=== PATIENT | female | born 1990 | race African-American/Black ===

== ENCOUNTER → 2016-10-28 | Outpatient (CLI) | payer MEDICAID | LOC: M OUTALCOH 07:38 | PROVIDERS: ATTEND Psychiatry & Neurology Psychiatry | DX: Z13.9 Encounter for screening, unspecified (principal); F11.20 Opioid dependence, uncomplicated; F12.20 Cannabis dependence, uncomplicated; F15.20 Other stimulant dependence, uncomplicated ==

== ENCOUNTER 2016-11-07 21:02 | Emergency (ER) | payer MEDICAID ==
[~2016-11-07] VITALS: Ht 172.7 cm; Wt 88.5 kg
[2016-11-07 21:04] VITALS: BP 139/78
[2016-11-07] MEDS ORDERED: CEFTAROLINE FOSAMIL 600 MG in D5W MINI-BAG PLUS 50 ML IV ONE (22:45)
[2016-11-07] MEDS ORDERED: ACETAMINOPHEN TAB 650MG DOSE (2X325MG) PO ONE (22:45)
--- NOTE | 2016-11-07 23:40 | REPUSA ---
Clinical history: right leg mass. Findings: Real-time ultrasound imaging of the right leg was performed. There is a complex fluid rafa ection at the site of concern, measuring 2.4 x 1.2 x 1.4 cm. Normal heterogeneous fibroglandular tiss ue is otherwise noted. No focal defined mass is appreciated. No evidence of calcifications are apprec iated. No other gross abnormalities. Impression: Focal loculated fluid collection at the site of concern, suspicious for an abscess.
[2016-11-08 00:10] LABS: BASO # 0.1 K/mm3 (0.0-0.2); BASO % 0.5 % (0.0-1.0); EOS # 0.3 K/mm3 (0.0-0.50); EOS % 2.5 % (0.0-3.0); LARGE UNSTAINED CELL # 0.3 K/mm3 (0.0-0.4); LARGE UNSTAINED CELL % 2.9 % (0.0-4.0); LYMPH # 2.2 K/mm3 (1.5-6.5); LYMPH % 17.2 % (24.0-44.0); MEAN CORPUSCULAR HGB CONC 33.5 g/dl (32.0-36.5); MEAN CORPUSCULAR VOLUME 86.6 fl (80.0-96.0); MONO # 1.2 K/mm3 (0.0-0.8); MONO % 10.7 % (0.0-5.0); NEUTROPHILS # 7.2 K/mm3 (1.8-7.7); NEUTROPHILS % 66.2 % (36.0-66.0); PLATELET COUNT, AUTOMATED 227 k/mm3 (150-450); RED CELL DISTRIBUTION WIDTH 12.5 % (11.5-14.5); WHITE BLOOD COUNT 10.9 K/mm3 (4.0-10.0)
[2016-11-08 00:32] LABS: ANION GAP 8 MEQ/L (8-16); BLOOD UREA NITROGEN 14 MG/DL (7-18); CALCIUM LEVEL 8.7 MG/DL (8.5-10.1); CARBON DIOXIDE LEVEL 27 MEQ/L (21-32); CHLORIDE LEVEL 102 MEQ/L (98-107); CREATININE FOR GFR 0.95 MG/DL (0.55-1.02); GLOMERULAR FILTRATION RATE > 60.0 (>60); GLUCOSE, FASTING 132 MG/DL (70-105); POTASSIUM SERUM 3.7 MEQ/L (3.5-5.1); SODIUM LEVEL 137 MEQ/L (136-145)
[2016-11-08] MEDS ORDERED: AUGM500T34 PO (01:47)
== END 2016-11-08 02:00 | disposition left against medical advice (07) ==
LOC: M ED 21:50
DX: L02.415 Cutaneous abscess of right lower limb (principal); R50.9 Fever, unspecified; F17.210 Nicotine dependence, cigarettes, uncomplicated

== ENCOUNTER 2016-11-12 15:02 | Emergency (ER) | payer MEDICAID, OTHER ==
[~2016-11-12] VITALS: Ht 172.7 cm; Wt 88.5 kg
[~2016-11-12 15:02] MED LIST: AUGM500T34 PO
[2016-11-12] MEDS ORDERED: PROZ20CA11 PO (15:10)
--- NOTE | 2016-11-12 18:30 | REPUSA ---
Clinical history: Right calf mass. Findings: Real-time ultrasound imaging of the right calf region was performed. There is a large compl ex fluid collection at the site of concern measuring 3.1 x 1.0 x 2.1 cm. This is not well loculated. Surrounding soft tissue edema is noted, with superficial soft tissue erythema. No other soft tissue m asses are seen. Impression: Large complex fluid collection at the site of concern. This could represent focal edema, although a developing abscess cannot be excluded. Follow-up is suggested as clinically indicated.
[2016-11-12 18:57] VITALS: BP 140/68
== END 2016-11-12 18:58 | disposition home or self-care (01) ==
LOC: M ED 15:48
DX: L02.415 Cutaneous abscess of right lower limb (principal); J45.909 Unspecified asthma, uncomplicated; F41.9 Anxiety disorder, unspecified; F32.9 Major depressive disorder, single episode, unspecified; F17.200 Nicotine dependence, unspecified, uncomplicated; Z79.2 Long term (current) use of antibiotics; Z79.899 Other long term (current) drug therapy

== ENCOUNTER → 2017-03-21 | Outpatient (REF) | payer OTHER ==
[~2017-03-21] MED LIST changes: +PROZ20CA11 PO
[2017-03-26 16:02] LABS: MISCELLANEOUS TEST LAB See Separate Report
[2017-03-29 00:07] LABS: BENZODIAZEPINES, URINE SCREEN Negative ng/mL (Cutoff=200); METHADONE, URINE SCREEN Negative ng/mL (Cutoff=300); pH, URINE 7.3 (4.5-8.9)
== END ==
LOC: M LAB REF 11:05
PROVIDERS: ATTEND Family Medicine Addiction Medicine
DX: F11.21 Opioid dependence, in remission (principal)

== ENCOUNTER → 2017-03-27 | Outpatient (REF) | payer OTHER ==
[2017-04-22 07:42] LABS: BENZODIAZEPINES, URINE SCREEN Negative ng/mL (Cutoff=200); METHADONE, URINE SCREEN Negative ng/mL (Cutoff=300); NALOXONE RESULT Positive (.); URINE NORBUPRENORPHINE Positive (.); URINE NORBUPRENORPHINE CONFIRM 496 ng/mL (Cutoff=10); pH, URINE 5.4 (4.5-8.9)
== END ==
LOC: M LAB REF 12:25
PROVIDERS: ATTEND Family Medicine Addiction Medicine
DX: F11.21 Opioid dependence, in remission (principal)

== ENCOUNTER → 2017-04-03 | Outpatient (REF) | payer OTHER ==
[2017-04-03 18:57] LABS: BASO % 0.5 % (0.0-1.0); EOS # 0.3 10^3/uL (0.0-0.50); IMMATURE GRANULOCYTE % 0.3 % (0-0); LYMPH # 2.2 10^3/uL (1.5-6.5); LYMPH % 35.1 % (24.0-44.0); MEAN CORPUSCULAR HEMOGLOBIN 27.2 pg (27.0-33.0); MEAN CORPUSCULAR HGB CONC 32.3 g/dl (32.0-36.5); MEAN CORPUSCULAR VOLUME 84.2 fl (80.0-96.0); MONO # 0.4 10^3/uL (0.0-0.8); NEUTROPHILS # 3.3 10^3/uL (1.8-7.7); NEUTROPHILS % 52.1 % (36.0-66.0); PLATELET COUNT, AUTOMATED 251 10^3/uL (150-450); RED CELL DISTRIBUTION WIDTH 14.2 % (11.5-14.5); WHITE BLOOD COUNT 6.3 10^3/uL (4.0-10.0)
[2017-04-03 19:05] LABS: ALBUMIN 3.6 GM/DL (3.2-5.2); ALBUMIN/GLOBULIN RATIO 0.95 (1.00-1.93); ALKALINE PHOSPHATASE 70 U/L (45-117); ALT/SGPT 24 U/L (12-78); ANION GAP 6 MEQ/L (8-16); AST/SGOT 22 U/L (15-37); BILIRUBIN,TOTAL 0.3 MG/DL (0.2-1.0); BLOOD UREA NITROGEN 12 MG/DL (7-18); CALCIUM LEVEL 8.9 MG/DL (8.5-10.1); CARBON DIOXIDE LEVEL 27 MEQ/L (21-32); CHLORIDE LEVEL 106 MEQ/L (98-107); CREATININE FOR GFR 0.66 MG/DL (0.55-1.02); GLOMERULAR FILTRATION RATE > 60.0 (>60); GLUCOSE, FASTING 85 MG/DL (70-105); POTASSIUM SERUM 4.5 MEQ/L (3.5-5.1); SODIUM LEVEL 139 MEQ/L (136-145); TOTAL PROTEIN 7.4 GM/DL (6.4-8.2)
[2017-04-14 14:21] LABS: BENZODIAZEPINES, URINE SCREEN Negative ng/mL (Cutoff=200); METHADONE, URINE SCREEN Negative ng/mL (Cutoff=300); NALOXONE RESULT Negative (.); URINE NORBUPRENORPHINE Positive (.); URINE NORBUPRENORPHINE CONFIRM 184 ng/mL (Cutoff=10); pH, URINE 5.6 (4.5-8.9)
== END ==
LOC: M LAB REF 12:10
PROVIDERS: ATTEND Family Medicine Addiction Medicine
DX: F11.21 Opioid dependence, in remission (principal)

== ENCOUNTER → 2017-04-10 | Outpatient (REF) | payer OTHER ==
[2017-04-21 10:12] LABS: BENZODIAZEPINES, URINE SCREEN Negative ng/mL (Cutoff=200); METHADONE, URINE SCREEN Negative ng/mL (Cutoff=300); NALOXONE RESULT Negative (.); URINE NORBUPRENORPHINE Positive (.); URINE NORBUPRENORPHINE CONFIRM 134 ng/mL (Cutoff=10); pH, URINE 5.6 (4.5-8.9)
== END ==
LOC: M LAB REF 15:15
PROVIDERS: ATTEND Family Medicine Addiction Medicine
DX: R61 Generalized hyperhidrosis (principal)

== ENCOUNTER → 2017-05-09 | Outpatient (REF) | payer OTHER | LOC: M LAB REF 12:36 | PROVIDERS: ATTEND Family Medicine Addiction Medicine | DX: F11.21 Opioid dependence, in remission (principal) ==

== ENCOUNTER → 2017-05-23 | Outpatient (REF) | payer OTHER ==
[2017-06-01 10:53] LABS: BENZODIAZEPINES, URINE SCREEN Negative ng/mL (Cutoff=200); METHADONE, URINE SCREEN Negative ng/mL (Cutoff=300); NALOXONE RESULT Negative (.); URINE NORBUPRENORPHINE Positive (.); URINE NORBUPRENORPHINE CONFIRM 320 ng/mL (Cutoff=10); pH, URINE 5.3 (4.5-8.9)
== END ==
LOC: M LAB REF 16:20
PROVIDERS: ATTEND Family Medicine Addiction Medicine
DX: F11.21 Opioid dependence, in remission (principal)

== ENCOUNTER → 2017-06-13 | Outpatient (REF) | payer OTHER, MEDICAID | LOC: M LAB REF 16:44 | PROVIDERS: ATTEND Family Medicine Addiction Medicine | DX: F11.21 Opioid dependence, in remission (principal) ==

== ENCOUNTER → 2017-07-04 | Outpatient (REF) | payer OTHER, MEDICAID | LOC: M LAB REF 16:23 | DX: F11.21 Opioid dependence, in remission (principal) ==

== ENCOUNTER → 2017-07-25 | Outpatient (REF) | payer OTHER, MEDICAID | LOC: M LAB REF 19:10 | DX: F11.21 Opioid dependence, in remission (principal) | CPT/HCPCS: 80362 ==

== ENCOUNTER → 2017-08-12 | Outpatient (REF) | payer OTHER, MEDICAID | LOC: M LAB REF 16:56 | DX: F11.21 Opioid dependence, in remission (principal) ==

== ENCOUNTER → 2017-08-13 | Outpatient (REF) | payer OTHER, MEDICAID | LOC: M LAB REF 22:17 | DX: F11.21 Opioid dependence, in remission (principal) ==

== ENCOUNTER → 2017-08-15 | Outpatient (REF) | payer OTHER, MEDICAID ==
[2017-08-15 15:49] LABS: CHLAMYDIA DNA AMPLIFICATION NEGATIVE (NEGATIVE); GC DNA AMPLIFICATION NEGATIVE (NEGATIVE)
== END ==
LOC: M LAB REF 12:55
DX: Z11.3 Encounter for screening for infections with a predominantly sexual mode of transmission (principal)

== ENCOUNTER → 2017-08-27 | Outpatient (CLI) | payer OTHER ==
[2017-08-27 15:39] LABS: PROGESTERONE 9.5 NG/ML
[2017-08-27 15:39] LABS: ESTRADIOL 114.3 PG/ML
== END ==
LOC: M LAB 14:44
DX: Z31.61 Procreative counseling and advice using natural family planning (principal)
CPT/HCPCS: 84144

== ENCOUNTER → 2017-09-03 | Outpatient (REF) | payer OTHER ==
[2017-09-10 08:40] LABS: AMPHETAMINE SCREEN, URINE Negative ng/mL (Cutoff=1000); BARBITURATES SCREEN, URINE Negative ng/mL (Cutoff=200); BENZODIAZEPINES, URINE SCREEN Negative ng/mL (Cutoff=200); CANNABINOID SCREEN, URINE Negative ng/mL (Cutoff=20); COCAINE SCREEN, URINE Negative ng/mL (Cutoff=300); CREATININE, URINE 169.7 mg/dL (20.0-300.0); FENTANYL URINE SCREEN Negative pg/mL (Cutoff=2000); METHADONE, URINE SCREEN Negative ng/mL (Cutoff=300); NALOXONE RESULT Positive (.); OPIATE SCREEN, URINE Negative ng/mL (Cutoff=300); OXYCODONE, SCREEN, URINE Negative ng/mL (Cutoff=100); PCP SCREEN, URINE Negative ng/mL (Cutoff=25); SPECIFIC GRAVITY, URINE 1.031 (.); URINE BUPRENORPHINE Positive (.); URINE BUPRENORPHINE Positive (Cutoff=10); URINE BUPRENORPHINE See Final Results ng/mL (Cutoff=10); URINE BUPRENORPHINE CONFIRM 338 ng/mL (Cutoff=10); URINE NORBUPRENORPHINE Positive (.); URINE NORBUPRENORPHINE CONFIRM 344 ng/mL (Cutoff=10); pH, URINE 5.1 (4.5-8.9)
== END ==
LOC: M LAB REF 16:30
DX: F11.21 Opioid dependence, in remission (principal)
CPT/HCPCS: 80362

== ENCOUNTER → 2017-09-12 | Outpatient (REF) | payer OTHER, MEDICAID | LOC: M LAB REF 19:35 | DX: F11.21 Opioid dependence, in remission (principal) ==

== ENCOUNTER → 2017-10-22 | Outpatient (REF) | payer OTHER, MEDICAID | LOC: M LAB REF 09:19 | DX: F11.21 Opioid dependence, in remission (principal) ==

== ENCOUNTER → 2017-11-12 | Outpatient (REF) | payer OTHER, MEDICAID ==
[2017-11-21 03:02] LABS: AMPHETAMINE SCREEN, URINE Negative ng/mL (Cutoff=1000); BARBITURATES SCREEN, URINE Negative ng/mL (Cutoff=200); BENZODIAZEPINES, URINE SCREEN Negative ng/mL (Cutoff=200); CANNABINOID SCREEN, URINE Negative ng/mL (Cutoff=20); COCAINE SCREEN, URINE Negative ng/mL (Cutoff=300); CREATININE, URINE 66.8 mg/dL (20.0-300.0); FENTANYL URINE SCREEN Negative pg/mL (Cutoff=2000); METHADONE, URINE SCREEN Negative ng/mL (Cutoff=300); NALOXONE RESULT Negative (.); OPIATE SCREEN, URINE Negative ng/mL (Cutoff=300); OXYCODONE, SCREEN, URINE Negative ng/mL (Cutoff=100); PCP SCREEN, URINE Negative ng/mL (Cutoff=25); SPECIFIC GRAVITY, URINE 1.014 (.); URINE BUPRENORPHINE Negative (Cutoff=10); URINE BUPRENORPHINE Positive (Cutoff=10); URINE BUPRENORPHINE See Final Results ng/mL (Cutoff=10); URINE NORBUPRENORPHINE Positive (.); URINE NORBUPRENORPHINE CONFIRM 18 ng/mL (Cutoff=10); pH, URINE 7.3 (4.5-8.9)
== END ==
LOC: M LAB REF 16:47
DX: F11.21 Opioid dependence, in remission (principal)

== ENCOUNTER → 2018-01-16 | Outpatient (CLI) | payer MEDICAID, OTHER ==
[2018-01-16 14:08] LABS: BASO % 0.2 % (0.0-1.0); EOS # 0.2 10^3/uL (0.0-0.50); EOS % 1.2 % (0.0-3.0); HEMATOCRIT 34.6 % (36.0-47.0); HEMOGLOBIN 11.8 g/dl (12.0-15.5); IMMATURE GRANULOCYTE % 0.7 % (0-3.0); LYMPH # 2.6 10^3/uL (1.5-6.5); LYMPH % 21.7 % (24.0-44.0); MEAN CORPUSCULAR HEMOGLOBIN 28.2 pg (27.0-33.0); MEAN CORPUSCULAR HGB CONC 34.1 g/dl (32.0-36.5); MEAN CORPUSCULAR VOLUME 82.6 fl (80.0-96.0); MONO # 0.5 10^3/uL (0.0-0.8); MONO % 3.9 % (0.0-5.0); NEUTROPHILS # 8.8 10^3/uL (1.8-7.7); NEUTROPHILS % 72.3 % (36.0-66.0); PLATELET COUNT, AUTOMATED 314 10^3/uL (150-450); RED BLOOD COUNT 4.19 10^6/uL (4.00-5.40); RED CELL DISTRIBUTION WIDTH 13.2 % (11.5-14.5); WHITE BLOOD COUNT 12.2 10^3/uL (4.0-10.0)
[2018-01-16 14:29] LABS: ESTIMATED AVERAGE GLUCOSE 108 MG/DL (60-110); HEMOGLOBIN A1c 5.4 %
[2018-01-16 14:33] LABS: ALT/SGPT 29 U/L (12-78); AST/SGOT 13 U/L (7-37); BILIRUBIN,TOTAL 0.2 MG/DL (0.2-1.0); CREATININE FOR GFR 0.48 MG/DL (0.55-1.30); GLOMERULAR FILTRATION RATE > 60.0 (>60); GLUCOSE CHALLENGE TEST 1 HOUR 146 MG/DL (LESS THAN 140); LDH LACTATE DEHYDROGENASE 163 U/L (84-246); URIC ACID 3.7 MG/DL (2.6-6.0)
[2018-01-16 14:40] LABS: TOTAL PROTEIN,RANDOM URINE 28.7 MG/DL (0.0-12.0)
[2018-01-16 14:49] LABS: RUBELLA IgG QUALITATIVE IMMUNE (IMMUNE)
[2018-01-16 14:50] LABS: HBsAg Prenatal NEGATIVE (NEGATIVE)
[2018-01-16 15:18] LABS: HIV 1&2 SCREEN CENTAUR NEGATIVE (NEGATIVE)
[2018-01-16 15:23] LABS: HEPATITIS C VIRUS ABY INDEX > 11.0 INDEX (<0.8)
[2018-01-16 15:50] LABS: CHLAMYDIA DNA AMPLIFICATION NEGATIVE (NEGATIVE); GC DNA AMPLIFICATION NEGATIVE (NEGATIVE)
[2018-01-22 00:06] LABS: HCV RNA NAA QUALITATIVE Negative (Negative)
== END ==
LOC: M LAB 12:19
DX: O10.011 Pre-existing essential hypertension complicating pregnancy, first trimester (principal); Z3A.09 9 weeks gestation of pregnancy
CPT/HCPCS: 84460

== ENCOUNTER → 2018-01-30 | Outpatient (CLI) | payer MEDICAID, OTHER ==
[2018-01-30 09:13] LABS: GLUCOSE, FASTING 99 MG/DL (LESS THAN 95)
[2018-01-30 10:22] LABS: 1 HR GLUCOSE 120 MG/DL (LESS THAN 180)
[2018-01-30 11:07] LABS: 2 HR GLUCOSE 105 MG/DL (LESS THAN 155)
[2018-01-30 12:31] LABS: 3 HR GLUCOSE 87 MG/DL (LESS THAN 140)
== END ==
LOC: M LAB 08:15
DX: O10.011 Pre-existing essential hypertension complicating pregnancy, first trimester (principal)
CPT/HCPCS: 82951

== ENCOUNTER → 2018-03-09 | Outpatient (CLI) | payer OTHER, MEDICAID | LOC: M RAD 11:30 | DX: O10.011 Pre-existing essential hypertension complicating pregnancy, first trimester (principal); O99.211 Obesity complicating pregnancy, first trimester; E66.9 Obesity, unspecified; Z3A.18 18 weeks gestation of pregnancy | CPT/HCPCS: 76811 ==

== ENCOUNTER → 2018-04-03 | Outpatient (CLI) | payer OTHER | LOC: M RAD 12:05 | DX: Z34.90 Encounter for supervision of normal pregnancy, unspecified, unspecified trimester (principal); O10.012 Pre-existing essential hypertension complicating pregnancy, second trimester; Z3A.22 22 weeks gestation of pregnancy | CPT/HCPCS: 76816 ==

== ENCOUNTER 2018-04-25 17:41 | Emergency (ER) | payer OTHER ==
[2018-04-25] MEDS: LIDOCAINE VISCOUS 2% SOLN 15ML UDC SSP (18:10)
== END 2018-04-25 18:13 | disposition home or self-care (01) ==
LOC: M ED 17:41
DX: K04.7 Periapical abscess without sinus (principal); K02.9 Dental caries, unspecified; J45.909 Unspecified asthma, uncomplicated; F41.9 Anxiety disorder, unspecified; F33.9 Major depressive disorder, recurrent, unspecified; R56.9 Unspecified convulsions; Z79.899 Other long term (current) drug therapy
CPT/HCPCS: 99282

== ENCOUNTER → 2018-05-18 | Outpatient (CLI) | payer OTHER ==
[2018-05-18 13:19] LABS: HEMATOCRIT 30.9 % (36.0-47.0); HEMOGLOBIN 10.3 g/dl (12.0-15.5); MEAN CORPUSCULAR HEMOGLOBIN 27.5 pg (27.0-33.0); MEAN CORPUSCULAR HGB CONC 33.3 g/dl (32.0-36.5); MEAN CORPUSCULAR VOLUME 82.6 fl (80.0-96.0); PLATELET COUNT, AUTOMATED 335 10^3/uL (150-450); RED BLOOD COUNT 3.74 10^6/uL (4.00-5.40); RED CELL DISTRIBUTION WIDTH 12.9 % (11.5-14.5); WHITE BLOOD COUNT 13.6 10^3/uL (4.0-10.0)
[2018-05-18 13:39] LABS: GLUCOSE CHALLENGE TEST 1 HOUR 128 MG/DL (LESS THAN 140)
== END ==
LOC: M LAB 11:09
DX: O10.012 Pre-existing essential hypertension complicating pregnancy, second trimester (principal); Z3A.00 Weeks of gestation of pregnancy not specified
CPT/HCPCS: 82950

== ENCOUNTER → 2018-05-18 | Outpatient (CLI) | payer OTHER ==
[2018-05-18 13:24] LABS: BASO # 0.1 10^3/uL (0.0-0.2); BASO % 0.4 % (0.0-1.0); EOS # 0.2 10^3/uL (0.0-0.50); EOS % 1.6 % (0.0-3.0); HEMATOCRIT 31.1 % (36.0-47.0); HEMOGLOBIN 10.3 g/dl (12.0-15.5); IMMATURE GRANULOCYTE % 2.2 % (0-3.0); LYMPH # 2.2 10^3/uL (1.5-6.5); LYMPH % 16.4 % (24.0-44.0); MEAN CORPUSCULAR HEMOGLOBIN 27.6 pg (27.0-33.0); MEAN CORPUSCULAR HGB CONC 33.1 g/dl (32.0-36.5); MEAN CORPUSCULAR VOLUME 83.4 fl (80.0-96.0); MONO # 0.5 10^3/uL (0.0-0.8); MONO % 3.9 % (0.0-5.0); NEUTROPHILS # 10.2 10^3/uL (1.8-7.7); NEUTROPHILS % 75.5 % (36.0-66.0); PLATELET COUNT, AUTOMATED 337 10^3/uL (150-450); RED BLOOD COUNT 3.73 10^6/uL (4.00-5.40); RED CELL DISTRIBUTION WIDTH 12.8 % (11.5-14.5); WHITE BLOOD COUNT 13.5 10^3/uL (4.0-10.0)
[2018-05-18 13:48] LABS: ALBUMIN 3.2 GM/DL (3.2-5.2); ALBUMIN/GLOBULIN RATIO 0.78 (1.00-1.93); ALKALINE PHOSPHATASE 112 U/L (45-117); ALT/SGPT 17 U/L (12-78); AST/SGOT 16 U/L (7-37); BILIRUBIN,DIRECT < 0.1 MG/DL (0.0-0.2); BILIRUBIN,TOTAL 0.3 MG/DL (0.2-1.0); TOTAL PROTEIN 7.3 GM/DL (6.4-8.2)
[2018-05-18 13:53] LABS: HEPATITIS B SURFACE ANTIBODY POSITIVE (POSITIVE)
[2018-05-20 14:13] LABS: HEPATITIS A IgG TOTAL Negative (Negative); HEPATITIS B CORE ANTIBODY IGG Negative (Negative); HEPATITIS C QUANTITATION HCV Not Detected IU/mL (.)
== END ==
LOC: M LAB 11:14
DX: Z09 Encounter for follow-up examination after completed treatment for conditions other than malignant neoplasm (principal); Z86.19 Personal history of other infectious and parasitic diseases
CPT/HCPCS: 80076

== ENCOUNTER → 2018-05-27 | Outpatient (CLI) | payer OTHER | LOC: M RAD 15:37 | DX: O10.012 Pre-existing essential hypertension complicating pregnancy, second trimester (principal); Z3A.31 31 weeks gestation of pregnancy | CPT/HCPCS: 76816 ==

== ENCOUNTER 2018-06-10 11:39 | Emergency (ER) | payer OTHER ==
[2018-06-10] MEDS: ACETAMINOPHEN 325 MG TAB PO (12:14)
[2018-06-10] MEDS: ALBUTEROL SULFATE 2.5 MG/0.5 ML INH NEB SOLN INH (12:18)
[2018-06-10 12:24] LABS: KETONE, URINE AUTO RFX NEGATIVE (NEGATIVE); LEUKOCYTE ESTERASE UR AUTO RFX NEGATIVE (NEGATIVE); MUCUS, URINE RFX SMALL (NEGATIVE); NITRITE, URINE AUTO RFX NEGATIVE (NEGATIVE); RBC, URINE AUTO RFX 1 /HPF (0-3); SPECIFIC GRAVITY UR AUTO RFX 1.026 (1.002-1.035); SQUAM EPITHELIAL CELL UR AURFX 3 /HPF (0-6); WBC, URINE AUTO RFX 1 /HPF (0-3)
== END 2018-06-10 13:17 | disposition admitted as inpatient to this hospital (09) ==
LOC: M ED 11:39
DX: O99.513 Diseases of the respiratory system complicating pregnancy, third trimester (principal); J40 Bronchitis, not specified as acute or chronic; O9A.213 Injury, poisoning and certain other consequences of external causes complicating pregnancy, third trimester; S39.012A Strain of muscle, fascia and tendon of lower back, initial encounter; Y92.098 Other place in other non-institutional residence as the place of occurrence of the external cause; O12.13 Gestational proteinuria, third trimester; O99.43 Diseases of the circulatory system complicating the puerperium; R03.0 Elevated blood-pressure reading, without diagnosis of hypertension; Z87.891 Personal history of nicotine dependence; Z79.899 Other long term (current) drug therapy; Z3A.31 31 weeks gestation of pregnancy
CPT/HCPCS: 94640

== ENCOUNTER 2018-06-10 13:40 | Outpatient (CLI) | payer OTHER ==
[~2018-06-10] VITALS: Ht 175.3 cm; Wt 123.2 kg
[~2018-06-10 13:40] MED LIST changes: +AUGM875T28 PO; +LABE10TAB; +LIDO1SOL7 SSP; +VENTAER
[2018-06-10] MEDS ORDERED: PRENTAB9 PO (13:58)
[2018-06-10 14:00] VITALS: BP 144/80
[2018-06-10 14:40] VITALS: BP 122/57
[2018-06-10 15:16] LABS: HEMATOCRIT 31.9 % (36.0-47.0); HEMOGLOBIN 10.4 g/dl (12.0-15.5); MEAN CORPUSCULAR HGB CONC 32.6 g/dl (32.0-36.5); MEAN CORPUSCULAR VOLUME 82.9 fl (80.0-96.0); PLATELET COUNT, AUTOMATED 343 10^3/uL (150-450); RED BLOOD COUNT 3.85 10^6/uL (4.00-5.40); WHITE BLOOD COUNT 14.1 10^3/uL (4.0-10.0)
[2018-06-10 15:34] LABS: ALT/SGPT 16 U/L (12-78); BILIRUBIN,TOTAL 0.1 MG/DL (0.2-1.0); CREATININE FOR GFR 0.79 MG/DL (0.55-1.30); GLOMERULAR FILTRATION RATE > 60.0 (>60); LDH LACTATE DEHYDROGENASE 210 U/L (84-246); URIC ACID 3.4 MG/DL (2.6-6.0)
[2018-06-10 15:47] LABS: TOTAL PROTEIN,RANDOM URINE 20.4 MG/DL (0.0-12.0)
[2018-06-10 16:14] VITALS: BP 132/78
--- NOTE | 2018-06-10 16:32 | REP ---
Obstetric sonography: Limited study. History: Hypertension. Findings: Scanning through the gravid uterus demonstrates a viable single intrauterine gestation in a cephalic lie. An anterior placenta is seen grade 1 without evidence of previa. motion is observed and heart rate is recorded at 153 beats per minute. Closed cervical length viewed transabdominally is 4.4 cm. Amniotic fluid is subjectively normal. CHARO is normal 16.8 cm. Biophysical profile score is eight out of a possible eight. SD ratio in the umbilical cord artery by Doppler slightly low at 2.48. Electronically Signed by Alfredo Spears MD 06/10/2018 04:24 P
--- NOTE | 2018-06-10 16:33 | IPNPDOC ---
Text Note Date of Service The patient was seen on 06/10/18. NOTE 28 yo EDD2/. Presents from ED @ 31w3d with complaints of backpain and coughing. Being tx for bronchitis. Hx significant for CHTN, currently on labetalol 100mg BID NAD Abdomen soft, gravid, no UC FH difficult to trace due to activity, 140's BP max 144/80. CBC 14.1>10.4/31.9<343 Urine ratio 0.06 Preeclampsia panel WNL BPP 8/8, CHARO 16.8. Discharged home. Warnings reviewed. Keep next appt NV VS,Fishbone, I+O VS, Fishbone, I+O Laboratory Tests 06/10/18 15:00 Red Blood Count 3.85 L, Mean Corpuscular Volume 82.9, Mean Corpuscular Hemoglobin 27.0, Mean Corpuscular Hemoglobin Concent 32.6, Red Cell Distribution Width 12.9, Aspartate Amino Transf (AST/SGOT) 16, Alanine Aminotransferase (ALT/SGPT) 16, Lactate Dehydrogenase 210, Total Bilirubin 0.1 L, Uric Acid 3.4 Vital Signs Date Time Temp Pulse Resp B/P (MAP) Pulse Ox O2 Delivery O2 Flow Rate FiO2 06/10/18 16:14 92 132/78 (96) 06/10/18 14:40 98.6 18 Sarah Fish CNM Jun 10, 2018 16:33
== END 2018-06-10 16:35 | disposition home or self-care (01) ==
LOC: M LDO 13:40
PROVIDERS: ATTEND Advanced Practice Midwife
DX: O99.89 Other specified diseases and conditions complicating pregnancy, childbirth and the puerperium (principal); M54.9 Dorsalgia, unspecified; O99.513 Diseases of the respiratory system complicating pregnancy, third trimester; J40 Bronchitis, not specified as acute or chronic; O16.3 Unspecified maternal hypertension, third trimester; Z3A.31 31 weeks gestation of pregnancy; Z79.899 Other long term (current) drug therapy

== ENCOUNTER → 2018-07-01 | Outpatient (CLI) | payer OTHER ==
[~2018-07-01] MED LIST changes: +PRENTAB9 PO
--- NOTE | 2018-07-02 04:26 | REP ---
Clinical: Maternal hypertension for well being Comparison: 06/24/2018 . Findings: Examination demonstrates a single live intrauterine in cephalic presentation. motion is identified by technologist. Placenta is noted anterior and grade II without evidence for placenta previa or abruption. Amniotic fluid volume is normal. Cervix measures 3.5 cm in length and appears closed. No evidence for nuchal cord. Gestational age by LMP 34 weeks 2 days with REESE 08/10/2018 . Gestational age by current first ultrasound 35 weeks 1 day with REESE 08/04/2018 . FHR equals 130 beats per minute. Biophysical profile score equals 8/8. Amniotic fluid index: 17.3 cm (8.0 - 24.8) Umbilical cord SD ratio: 2.63 (2.00 - 3.00). Anatomical survey was not performed although small scrotal hydroceles are suggested which may reflect inguinal hernia and warrant follow-up examination. Impression: Single live advanced gestation in cephalic presentation. Biophysical profile score equals 8/8. Incidental small scrotal hydroceles warrant evaluation for hernia. Electronically Signed by Gasper Hussein MD 07/02/2018 04:17 A
== END ==
LOC: M RAD 13:15
PROVIDERS: ATTEND Obstetrics & Gynecology
DX: O10.013 Pre-existing essential hypertension complicating pregnancy, third trimester (principal); Z3A.35 35 weeks gestation of pregnancy

== ENCOUNTER → 2018-07-09 | Outpatient (CLI) | payer OTHER ==
--- NOTE | 2018-07-10 03:31 | REP ---
Clinical: U well-being. Maternal hypertension. Comparison: 07/01/2018 . Findings: Examination demonstrates a single live intrauterine in cephalic presentation. motion is identified by technologist. Placenta is noted anterior and grade grade II without evidence for placenta previa or abruption. Amniotic fluid volume is normal. Cervix measures 3.8 cm in length and appears closed. No evidence for nuchal cord. Gestational age by LMP 35 weeks 3 days with REESE 08/10/2018 . FHR equals 145 beats per minute. Biophysical profile score: 8/8. Amniotic fluid index: 6.8 cm (7.8 - 24.9) Umbilical cord SD ratio: 2.34 (2.00 - 3.00) Impression: Single live intrauterine in cephalic presentation. Biophysical profile score equals 8/8. Amniotic fluid volume is minimally below normal range. Electronically Signed by Gasper Hussein MD 07/10/2018 03:23 A
== END ==
LOC: M RAD 11:51
PROVIDERS: ATTEND Advanced Practice Midwife
DX: O10.013 Pre-existing essential hypertension complicating pregnancy, third trimester (principal); Z3A.35 35 weeks gestation of pregnancy

== ENCOUNTER → 2018-07-14 | Outpatient (REF) | payer OTHER | LOC: M LAB REF 12:59 | PROVIDERS: ATTEND Advanced Practice Midwife | DX: O10.013 Pre-existing essential hypertension complicating pregnancy, third trimester (principal) ==

== ENCOUNTER → 2018-07-16 | Outpatient (CLI) | payer OTHER ==
--- NOTE | 2018-07-16 20:53 | REP ---
Clinical: well-being Comparison: 07/09/2018 . Findings: Examination demonstrates a single live intrauterine in cephalic presentation. motion is identified by technologist. Placenta is noted anterior and grade grade III without evidence for placenta previa or abruption. Amniotic fluid volume is normal. Nuchal cord cannot be excluded. Gestational age by LMP 36 weeks 3 days with REESE 08/10/2018 . Gestational age by current measurements the 8 weeks 2 days with REESE 07/28/2018 . FHR equals 132 beats per minute. Estimated weight 3234 grams ( 72nd percentile). Biophysical profile score: 8/8 Umbilical cord SD ratio: 2.54 (124 - 2.84) Amniotic fluid index: 7.9 cm (7.6 - 24.7) Impression: Single live advanced gestation in cephalic presentation. Nuchal cord cannot be excluded. Biophysical profile score and amniotic fluid volume normal. Electronically Signed by Gasper Hussein MD 07/16/2018 08:45 P
== END ==
LOC: M RAD 13:13
PROVIDERS: ATTEND Obstetrics & Gynecology
DX: O10.013 Pre-existing essential hypertension complicating pregnancy, third trimester (principal); Z3A.36 36 weeks gestation of pregnancy

== ENCOUNTER 2018-07-20 09:01 | Inpatient (IN) | payer OTHER ==
[2018-07-20] VITALS (24 sets, daily range): BP systolic 109–166; BP diastolic 59–103
[~2018-07-20] VITALS: Ht 175.3 cm; Wt 125.6 kg
[2018-07-20] MEDS: miSOPROStol 50 MCG 1/2 TAB (S0191) PO SCH ×2 (10:28→14:25)
[2018-07-20] MEDS: LABETALOL 100 MG TAB PO SCH ×2 (10:29→21:04)
[2018-07-20 10:45] LABS: HEMATOCRIT 32.7 % (36.0-47.0); HEMOGLOBIN 10.4 g/dl (12.0-15.5); MEAN CORPUSCULAR HEMOGLOBIN 25.6 pg (27.0-33.0); MEAN CORPUSCULAR HGB CONC 31.8 g/dl (32.0-36.5); MEAN CORPUSCULAR VOLUME 80.3 fl (80.0-96.0); PLATELET COUNT, AUTOMATED 305 10^3/uL (150-450); RED BLOOD COUNT 4.07 10^6/uL (4.00-5.40); WHITE BLOOD COUNT 11.5 10^3/uL (4.0-10.0)
--- NOTE | 2018-07-20 10:52 | HPEPDOC ---
Obstetrical History & Physical General Date of Admission Jul 20, 2018 at 09:01 History of Present Illness CC: labor induction HPI: Scott Vogel is a 28 y.o. @ 37 weeks gestation by LMP of 11/03/2017 with REESE 08/10/18. She presents complaining of: Chronic Hypertension and oligohydramnios for induction of labor. Uterine Contractions: none SROM? No Movement? Yes Bleeding/Discharge? No Care/Lab: Blood type: O positive, Ab negative BPs: 147/83 Total weight gained:13 lbs GBS negative Rubella: immune HIV negative Pap: WNL? Not documented GC/CT: neg/neg Hep BsAg negative Walker: WNL VDRL/RPR: non-reactive Diabetes Screen: 128 3 hour GTT: 99/120/105/87 OB U/S: 07/09/2018 BPP: SIUP. Cephalic. Placenta anterior without previa or abruption. CHARO 6.8 cm. Cervix 3.8 cm closed. FHR 145. BPP 8/8. SD ratio 2.34 POB Hx: Year Gender Gest Delivery Weight Complications? 1. 05/2009- 7 lbs 5 oz Male @40-0/7wks gest. by with a 2 vessel cord, labor over 32 hours 2. 10/2010- 8 lbs 11oz Female @40-0/7 wks gest. by without complications 3. 07/2012- at unknown #wks PMHx: Meds: prenatals? Yes -Asthma -Hx of Hep C w/ spontaneous remission (HCV RNA negative. No risk of vertical transmission) -Hx of tobacco abuse -Hx of heroin use, stopped subutex w/ -Depression, stopped zoloft w/ -Obesity -Hypertension PSHx: -Umbilical hernia repair (2013) - Allergies: NKDA, bee sting, seasonal allergies Social Hx: ,denies tobacco product use, Denies Etoh, 10 months clean of heroin and denies any illicit drug use Exam: Vitals: T HR73 BP147/83 Abdomen: soft, non-tender, gravid uterus EFW as of 06/24/18: 2470 g (71%) SVE:closed/ 50%/-3 station Monitor: Baseline HR in 130s with moderate variability Category I FHR tra cing TOCO: No contractions on tocometer currently. Past Medical History Allergies Coded Allergies: No Known Allergies (Verified , 12/04/04) Medications Scheduled Multivitamins/ ( 27-0.8 mg) 1 Tab Tab, 1 TAB PO DAILY Miscellaneous Medications Albuterol Sulfate (Ventolin Hfa) 108 Mcg/Act Aer Labetalol HCl (Labetalol HCl) 100 Mg Tab Physical Examination Physical Examination GENERAL: Alert and oriented times three. BREAST: . ABDOMEN: Gravid and non-tender to touch. FETUS: Is vertex (VTX) by sterile vaginal examination (SVE), fetus is vertex (VTX) by Tito. HEART RATE: Regular rate and rhythm. LUNGS: Clear to auscultation (CTA). EXTREMITIES: No edema. No clonus. Deep tendon reflexes (DTRs) + 2. Laboratory Data 24H LABS Laboratory Tests 2 07/20/18 09:14: Serology Scanned Report Hepatitis B Testing Assessment/Plan Assessment IUP at 37 weeks gestation CHTN oligohydramnios GBS negative Category I FHR tracing Plan Plan: -IUP @ 37 weeks presents for induction of labor for oligohydramnios (CHARO on 06/23/18 was 6.8cm, down from 17.3 cm on 07/02/18) -Giving Cytotec 50mcg PO Q4hrs -Anesthesia consult placed for epidural per patient's request -Type and screen, CBC, syphillis, urine drug screen ordered -Regular diet -Preeclampsia profile -FHR monitoring, monitor I/Os, vital signs Q4 hrs, OOB ad yogesh, urinary catheter insertion following epidural - Giving 100 mg PO labetalol BID -Anticipate cervical ripening and vaginal delivery GME ATTESTATION GME ATTESTATION My faculty preceptor for this patient encounter was physically present during the encounter and was fully available. All aspects of the patient interview, examination, medical decision making process, and medical care plan development were reviewed and approved by the faculty preceptor. The faculty preceptor is aware and concurs with the plan as stated in the body of this note and will attest to such by his/her cosignature. REYNALDO SEGOVIA DO Jul 20, 2018 10:52 AKSHAT VELASCO CNM Jul 20, 2018 11:47
[2018-07-20 11:02] LABS: AMPHETAMINES URINE REFLEX NEGATIVE (NEGATIVE); BARBITURATES URINE REFLEX NEGATIVE (NEGATIVE); BENZODIAZEPINES URINE REFLEX NEGATIVE (NEGATIVE); COCAINE METABOLITE URINE REFLE NEGATIVE (NEGATIVE); METHADONE URINE REFLEX NEGATIVE (NEGATIVE); OPIATES URINE REFLEX NEGATIVE (NEGATIVE); PHENCYCLIDINE URINE REFLEX NEGATIVE (NEGATIVE)
[2018-07-20 11:09] LABS: CANNABINOIDS URINE REFLEX PENDING CONFIRMATION (NEGATIVE)
[2018-07-20 11:10] LABS: ALT/SGPT 15 U/L (12-78); BILIRUBIN,TOTAL 0.3 MG/DL (0.2-1.0); CREATININE FOR GFR 0.61 MG/DL (0.55-1.30); GLOMERULAR FILTRATION RATE > 60.0 (>60); LDH LACTATE DEHYDROGENASE 218 U/L (84-246)
[2018-07-20] MEDS ORDERED: OXYTOCIN DRIP 30 UNITS in APPROPRIATE DILUENT 1 EA IV SCH (18:30)
[2018-07-20] MEDS: LR 1,000 ML IV SCH (19:57)
--- NOTE | 2018-07-20 20:58 | IPNPDOC ---
Obstetrical Progress Note Date of Service Jul 20, 2018 Subjective Patient reports she can feel some of her contractions now. Objective Vital Signs Date Time Temp Pulse Resp B/P (MAP) Pulse Ox O2 Delivery O2 Flow Rate FiO2 07/20/18 20:03 98.7 92 16 140/76 (97) Assessment Heart Rate (FHR): 140 Variability: Moderate Accelerations: Positive Decelerations: None Heart Rate Tracing: Category I Tocometer Contractions: Yes Frequency: regular, other (2-4 minutes) Sterile Vaginal Examination Dilation: 2cm Effacement (%): 50% Station: -2 Cervical Consistency: Soft Cervical Position: Middle Postion/Presentation: Cephalic presentation Assessment and Plan Age: 28 : 4 Term: 2 Pre-term: 0 Abortions: 1 Livin EGA at Admission: 37.1 Status: Reassuring Group B Streptococcus: Negative Anticipate: Vaginal Delivery Additional Comments IV Pitocin to be started per order. AKSHAT VELASCO CNM Jul 20, 2018 20:58
[2018-07-20] MEDS ORDERED: FENTANYL 2MCG/ML ROPIVACAINE 0.2% IN 0.9% NACL 100ML IVBAG As Ordered ONE (22:22)
[2018-07-20] MEDS ORDERED: EPIDURAL/PCA KEYS XX PRN (23:45)
[2018-07-20] MEDS ORDERED: ONDANSETRON 4MG/2ML VIAL (J2405) IV PRN (23:45)
[2018-07-20] MEDS ORDERED: REFRIGERATOR IV KEYS XX PRN (23:45)
[2018-07-20] MEDS ORDERED: EPIDURAL COMMENT XX SCH (23:45)
[2018-07-20] MEDS ORDERED: diphenhydrAMINE INJ 50MG/ML VIAL (J1200) IV PRN (23:45)
[2018-07-20] MEDS ORDERED: ePHEDrine SULFATE 25 MG/5 ML(5MG/ML) SYRINGE IV PRN (23:45)
[2018-07-20] MEDS ORDERED: LACTATED RINGER'S 1000 ML IV PRN (23:45)
[2018-07-20] MEDS ORDERED: NALOXONE INJ 0.4 MG/1 ML VIAL (J2310) IV PRN (23:45)
[2018-07-20] MEDS ORDERED: FENTANYL/ROPIVACAINE/NACL BAG 100 ML EPIDURAL SCH (23:45)
[2018-07-21] VITALS (29 sets, daily range): BP systolic 105–153; BP diastolic 50–106
[2018-07-21] MEDS: LR 1,000 ML IV SCH ×2 (01:11→10:45)
--- NOTE | 2018-07-21 01:12 | IPNPDOC ---
Obstetrical Progress Note Date of Service Jul 21, 2018 Subjective Patient reports she is comfortable with her epidural. Objective Vital Signs Date Time Temp Pulse Resp B/P (MAP) Pulse Ox O2 Delivery O2 Flow Rate FiO2 07/21/18 00:30 99.1 100 16 125/81 (96) Assessment Heart Rate (FHR): 140 Variability: Moderate Accelerations: Positive Decelerations: None Heart Rate Tracing: Category I Tocometer Contractions: Yes Frequency: other (2-4 minutes) Sterile Vaginal Examination Dilation: 3 cm (3-4 cm) Effacement (%): 50% Station: -2 Cervical Consistency: Soft Cervical Position: Middle Postion/Presentation: Cephalic presentation Assessment and Plan Age: 28 : 4 Term: 2 Pre-term: 0 Abortions: 1 Livin EGA at Admission: 37.1 Weeks & Days 37.2 weeks today Status: Reassuring Group B Streptococcus: Negative Anticipate: Vaginal Delivery Additional Comments AROM to a scant amount of clear fluid. Pitocin at 10 mu/min. AKSHAT VELASCO CNM Jul 21, 2018 01:12
[2018-07-21] MEDS: PRENATAL VITAMINS CHEWABLE TABLET PO SCH (09:00)
[2018-07-21] MEDS: LABETALOL 100 MG TAB PO SCH ×2 (09:09→23:09)
[2018-07-21] MEDS ORDERED: ACETAMINOPHEN 500 MG TAB PO ONE (09:15)
[2018-07-21] MEDS ORDERED: OXYTOCIN DRIP 30 UNITS in APPROPRIATE DILUENT 1 EA IV SCH (12:32)
[2018-07-21] MEDS ORDERED: DOCUSATE SODIUM 100 MG CAP PO PRN (12:45)
[2018-07-21] MEDS ORDERED: METHYLERGONOVINE MALEATE 0.2 MG TAB PO PRN (12:45)
[2018-07-21] MEDS ORDERED: MEASLES,MUMPS,RUBELLA VACCINE INJ (MMR-II) (90707) SC SCH (12:45)
[2018-07-21] MEDS ORDERED: ANUSOL HC CREAM 30GM TOP PRN (12:45)
[2018-07-21] MEDS ORDERED: DIBUCAINE 1% OINTMENT 30GM TOP PRN (12:45)
[2018-07-21] MEDS ORDERED: RHOGAM 300 MCG (1500 IU) INJ (J2790) IM SCH (12:45)
[2018-07-21] MEDS ORDERED: MOM 30ML SUSPENSION UDC PO PRN (12:45)
[2018-07-21] MEDS: IBUPROFEN 800 MG TAB PO PRN ×2 (13:13→21:32)
[2018-07-21] MEDS: ACETAMINOPHEN 500 MG TAB PO PRN ×2 (14:49→21:33)
--- NOTE | 2018-07-21 18:03 | DN ---
DATE OF DELIVERY: 07/21/2018 TIME OF : 1104 GENDER: Male : 9 and 9 WEIGHT: 3430 grams, 7 pounds 9 ounces. ANESTHESIA: Epidural. LACERATION: Left labial laceration. ESTIMATED BLOOD LOSS: 300 mL. COUNTS: 5 laparotomy, sponges accounted for prior to and after delivery, 1 sharp removed from delivery field. DELIVERY NOTE: On 07/21/2018 at 1104 Ms. Pickett a 28-year-old 4 now para 3 had a spontaneous vaginal delivery of a liver born male . 9 and 9. Weight was 3430 grams, 7 pounds 9 ounces. Head was delivered OA and there was a double nuchal cord which was manually reduced followed by delivery of the shoulders and corpus. was handed to the mom with a good cry. Cord was clamped times two and was cut by the father of the baby under my direction. Cord was then drained and delivered grossly intact. A premixed bag of 500 mL of normal saline with 30 units of pitocin was then bolused along with uterine massage until the uterus was firm. On inspection, there was a left labial laceration, which was repaired with #3-0 Vicryl Rapide. Reinspection of the cervix, vagina, and peroneum was grossly intact and hemostatic. Mom and baby recovered in a stable condition. [facility] HOSPITALDaniella
[2018-07-22 02:20] VITALS: BP 120/61
[2018-07-22 06:09] VITALS: BP 104/59
--- NOTE | 2018-07-22 07:22 | NUR ---
PPD#1 S: Doing well w/o complaints. + voids, + ambulation and pain well controlled. O: vss, AF gen: well appearing abd: soft,nttp, ff@u-1 ext neg calf tenderness A/P: PPD#1 s/p -recovering in stable condition -cont routine care -d/c plans for tomorrow Josie Garcia MD
[2018-07-22] MEDS: LABETALOL 100 MG TAB PO SCH ×2 (08:18→21:00)
[2018-07-22] MEDS: PRENATAL VITAMINS CHEWABLE TABLET PO SCH (08:18)
[2018-07-22 10:00] VITALS: BP 131/74
[2018-07-22 14:00] VITALS: BP 137/79
[2018-07-22] MEDS: IBUPROFEN 800 MG TAB PO PRN (15:09)
[2018-07-22 18:00] VITALS: BP 129/64
[2018-07-22 22:44] VITALS: BP 132/77
[2018-07-22] MEDS: ACETAMINOPHEN 500 MG TAB PO PRN (23:28)
[2018-07-23 02:46] VITALS: BP 123/68
[2018-07-23 06:28] VITALS: BP 119/70
[2018-07-23 08:07] LABS: Cannabinoid Positive (.); GC Carboxy THC >300 ng/mL (Cutoff=10)
[2018-07-23] MEDS ORDERED: IBUP-1114 PO (08:42)
[2018-07-23] MEDS ORDERED: MAPA500T2 PO (08:42)
[2018-07-23] MEDS: PRENATAL VITAMINS CHEWABLE TABLET PO SCH (09:35)
[2018-07-23 09:36] VITALS: BP 135/69
[2018-07-23] MEDS: LABETALOL 100 MG TAB PO SCH (09:36)
[2018-07-23] MEDS: IBUPROFEN 800 MG TAB PO PRN (11:46)
== END 2018-07-23 11:50 | disposition home or self-care (01) | DRG 560 ==
LOC: M LDI 09:01 → M OBS 07-21 13:22
PROVIDERS: ADMIT Advanced Practice Midwife; ATTEND Obstetrics & Gynecology
PROC: 3E0P7GC Introduction of Other Therapeutic Substance into Female Reproductive, Via Natural or Artificial Opening (ICD-10-PCS; 2018-07-20)
PROC: 10E0XZZ Delivery of Products of Conception, External Approach (ICD-10-PCS; principal; 2018-07-21)
PROC: 0HQ9XZZ Repair Perineum Skin, External Approach (ICD-10-PCS; 2018-07-21)
PROC: 10907ZC Drainage of Amniotic Fluid, Therapeutic from Products of Conception, Via Natural or Artificial Opening (ICD-10-PCS; 2018-07-21)
DX: O41.03X0 Oligohydramnios, third trimester, not applicable or unspecified (principal); O10.02 Pre-existing essential hypertension complicating childbirth; Z3A.37 37 weeks gestation of pregnancy; O70.0 First degree perineal laceration during delivery; Z37.0 Single live birth; O69.81X0 Labor and delivery complicated by cord around neck, without compression, not applicable or unspecified

== ENCOUNTER → 2019-02-23 | Outpatient (REF) | payer OTHER ==
[~2019-02-23] MED LIST changes: +IBUP-1114 PO; -LIDO1SOL7 SSP; +LIDO1SOL8 SSP; +MAPA500T2 PO
[2019-02-23 22:27] LABS: CHLAMYDIA DNA AMPLIFICATION NEGATIVE (NEGATIVE); GC DNA AMPLIFICATION NEGATIVE (NEGATIVE)
[2019-02-27 14:07] LABS: HPV LOW VOL RFLX Negative (Negative)
== END ==
LOC: M LAB REF 19:19
PROVIDERS: ATTEND Advanced Practice Midwife
DX: N76.0 Acute vaginitis (principal)

== ENCOUNTER 2024-03-21 16:25 | Emergency (ER) | payer OTHER ==
[~2024-03-21] VITALS: Ht 175.3 cm; Wt 111.2 kg
[~2024-03-21 16:25] MED LIST changes: +LABE100T6; -LABE10TAB; +LIDO15SO8 SSP; -LIDO1SOL8 SSP
[2024-03-21 19:26] VITALS: BP 142/81; TEMP 97.7; O2SAT 99
== END 2024-03-21 19:27 | disposition home or self-care (01) ==
LOC: M ED 16:25
DX: O26.851 Spotting complicating pregnancy, first trimester (principal); Z3A.10 10 weeks gestation of pregnancy; Z79.1 Long term (current) use of non-steroidal anti-inflammatories (NSAID); Z79.51 Long term (current) use of inhaled steroids

== ENCOUNTER → 2024-03-30 | Outpatient (CLI) | payer OTHER ==
[2024-03-30 13:24] LABS: LDH LACTATE DEHYDROGENASE 167 U/L (120-246)
[2024-03-30 13:25] LABS: ALT/SGPT 13 U/L (7.0-40); AST/SGOT 10 U/L (<34); BILIRUBIN,TOTAL 0.3 MG/DL (0.3-1.2); CREATININE FOR GFR 0.55 MG/DL (0.55-1.30); GLOMERULAR FILTRATION RATE > 60.0 (>60); HEMATOCRIT 33.8 % (36.0-47.0); HEMOGLOBIN 11.2 g/dl (12.0-15.5); MEAN CORPUSCULAR HEMOGLOBIN 28.6 pg (27.0-33.0); MEAN CORPUSCULAR HGB CONC 33.1 g/dl (32.0-36.5); MEAN CORPUSCULAR VOLUME 86.2 fl (80.0-96.0); PLATELET COUNT, AUTOMATED 293 10^3/uL (150-450); RED BLOOD COUNT 3.92 10^6/uL (4.00-5.40); WHITE BLOOD COUNT 9.1 10^3/uL (4.0-10.0)
[2024-03-30 13:42] LABS: TOTAL PROTEIN,RANDOM URINE 18.6 MG/DL (0.0-14.0)
[2024-03-30 13:47] LABS: CREATININE,RANDOM URINE 93.8 MG/DL
[2024-03-30 13:57] LABS: HIV 1&2 SCREEN NEGATIVE (NEGATIVE)
[2024-03-30 14:38] LABS: GC DNA AMPLIFICATION NEGATIVE (NEGATIVE)
[2024-03-30 16:02] LABS: HEPATITIS C VIRUS ABY INDEX > 11.00 INDEX (<0.8)
== END ==
LOC: M PLALAB 09:10
PROVIDERS: ATTEND Obstetrics & Gynecology
DX: O09.529 Supervision of elderly multigravida, unspecified trimester (principal)

== ENCOUNTER → 2024-06-10 | Outpatient (CLI) | payer OTHER | LOC: M WHC 12:01 | PROVIDERS: ATTEND Advanced Practice Midwife | DX: Z34.82 Encounter for supervision of other normal pregnancy, second trimester (principal) ==

== ENCOUNTER → 2024-07-26 | Outpatient (CLI) | payer OTHER ==
[2024-07-26 17:51] LABS: HEMATOCRIT 31.3 % (36.0-47.0); HEMOGLOBIN 9.9 g/dl (12.0-15.5); MEAN CORPUSCULAR HGB CONC 31.6 g/dl (32.0-36.5); MEAN CORPUSCULAR VOLUME 88.4 fl (80.0-96.0); PLATELET COUNT, AUTOMATED 302 10^3/uL (150-450); RED BLOOD COUNT 3.54 10^6/uL (4.00-5.40); WHITE BLOOD COUNT 11.9 10^3/uL (4.0-10.0)
[2024-07-26 17:53] LABS: GLUCOSE CHALLENGE TEST 1 HOUR 75 MG/DL (LESS THAN 140)
[2024-07-26 19:21] LABS: HEPATITIS C VIRUS ABY INDEX > 11.00 INDEX (<0.8)
[2024-07-26 20:10] LABS: GC DNA AMPLIFICATION NEGATIVE (NEGATIVE)
[2024-07-27 12:27] LABS: HIV 1&2 SCREEN NEGATIVE (NEGATIVE)
== END ==
LOC: M PLALAB 13:10
PROVIDERS: ATTEND Obstetrics & Gynecology
DX: Z34.92 Encounter for supervision of normal pregnancy, unspecified, second trimester (principal)

== ENCOUNTER → 2024-07-27 | Outpatient (CLI) | payer OTHER | LOC: M WHC 15:42 | PROVIDERS: ATTEND Nurse Practitioner Family | DX: I10 Essential (primary) hypertension (principal) ==

== ENCOUNTER → 2024-09-03 | Outpatient (CLI) | payer OTHER | LOC: M WHC 15:35 | PROVIDERS: ATTEND Nurse Practitioner Family | DX: O10.013 Pre-existing essential hypertension complicating pregnancy, third trimester (principal) ==

== ENCOUNTER → 2024-09-20 | Outpatient (REF) | payer OTHER | LOC: M SFHCWAGY 12:29 | PROVIDERS: ATTEND Specialist | DX: O10.013 Pre-existing essential hypertension complicating pregnancy, third trimester (principal) ==

== ENCOUNTER 2024-10-01 17:35 | Inpatient (IN) | payer OTHER ==
[~2024-10-01] VITALS: Ht 175.3 cm; Wt 116.2 kg
[2024-10-01] MEDS ORDERED: TUMS750C5 PO (18:04)
[2024-10-01] MEDS ORDERED: ASPI81CH33 PO (18:04)
[2024-10-01] MEDS ORDERED: LABE100T40 PO (18:04)
[2024-10-01] MEDS ORDERED: REGL10TA6 PO (18:04)
[2024-10-01] MEDS ORDERED: HOME MED LIST COMPLETE! XX SCH (18:05)
[2024-10-01] MEDS ORDERED: ACET-683 PO (18:12)
[2024-10-01 18:28] VITALS: BP 144/67
[2024-10-01] MEDS ORDERED: LIDOCAINE 1% MDV 20ML VIAL INFIL PRN (19:05)
[2024-10-01] MEDS ORDERED: METHYLERGONOVINE MALEATE 0.2MG/ML 1ML VIAL IM PRN (19:05)
[2024-10-01] MEDS ORDERED: CARBOPROST TROMETHAMINE 250 MCG/ML AMP IM PRN (19:05)
[2024-10-01] MEDS ORDERED: TRANEXAMIC ACID INJection 1,000 MG in NS 100 ML IV PRN (19:05)
[2024-10-01] MEDS ORDERED: OXYTOCIN DRIP 30 UNITS in IV 1 EA IV PRN (19:05)
[2024-10-01 19:42] LABS: HEMATOCRIT 28.7 % (36.0-47.0); HEMOGLOBIN 9.1 g/dl (12.0-15.5); MEAN CORPUSCULAR HEMOGLOBIN 25.6 pg (27.0-33.0); MEAN CORPUSCULAR HGB CONC 31.7 g/dl (32.0-36.5); MEAN CORPUSCULAR VOLUME 80.6 fl (80.0-96.0); PLATELET COUNT, AUTOMATED 322 10^3/uL (150-450); RED BLOOD COUNT 3.56 10^6/uL (4.00-5.40); WHITE BLOOD COUNT 10.1 10^3/uL (4.0-10.0)
[2024-10-01 19:46] VITALS: BP 122/71
[2024-10-01] MEDS: miSOPROStol 50MCG 1/2 TABLET PO SCH (19:46)
[2024-10-01 20:47] VITALS: BP 120/67
[2024-10-01] MEDS: LABETALOL 100MG TAB PO SCH (20:48)
[2024-10-01 21:47] VITALS: BP 135/76
[2024-10-01 21:53] LABS: HEPATITIS C VIRUS ABY INDEX > 11.00 INDEX (<0.8)
[2024-10-01 22:07] VITALS: BP 127/65
[2024-10-01 23:08] VITALS: BP 124/69
[2024-10-02] VITALS (40 sets, daily range): BP systolic 101–153; BP diastolic 58–88; O2SAT 98–99
[2024-10-02] MEDS: LR 1,000 ML IV SCH ×2 (01:01→08:39)
[2024-10-02] MEDS: OXYTOCIN DRIP 30 UNITS in IV 1 EA IV SCH (01:01)
[2024-10-02] MEDS ORDERED: ONDANSETRON 4MG 2ML VIAL IV PRN (06:30)
[2024-10-02] MEDS ORDERED: diphenhydrAMINE 50MG/ML VIAL IV PRN (06:30)
[2024-10-02] MEDS ORDERED: EPIDURAL/PCA KEYS XX PRN (06:30)
[2024-10-02] MEDS ORDERED: ePHEDrine SULFATE 25 MG/5 ML(5MG/ML) SYRINGE IVP PRN (06:30)
[2024-10-02] MEDS ORDERED: NALOXONE INJ 0.4MG/1ML VIAL IV PRN (06:30)
[2024-10-02] MEDS: LR 500 ML IV PRN (06:49)
[2024-10-02] MEDS: FENTANYL/ROPIVACAINE/NACL BAG 100 ML EPIDURAL SCH (06:49)
[2024-10-02] MEDS: LACTATED RINGER'S 1000 ML IV STA (08:38)
[2024-10-02] MEDS ORDERED: METHYLERGONOVINE MALEATE 0.2 MG TAB PO PRN (09:50)
[2024-10-02] MEDS ORDERED: ACETAMINOPHEN 325 MG TAB PO PRN (09:50)
[2024-10-02] MEDS ORDERED: RHOGAM 300MCG (1500IU) INJ IM SCH (09:50)
[2024-10-02] MEDS ORDERED: IBUPROFEN 600MG TAB PO PRN (09:50)
[2024-10-02] MEDS: DIBUCAINE 1% OINTMENT 30GM TOP PRN (16:22)
[2024-10-02] MEDS: DOCUSATE SODIUM 100MG CAPSULE PO PRN (16:22)
[2024-10-02] MEDS: IBUPROFEN 800 MG TAB PO PRN (16:23)
[2024-10-02] MEDS: ACETAMINOPHEN 500 MG TAB PO PRN (20:27)
[2024-10-03 06:00] VITALS: BP 146/70; O2SAT 100
[2024-10-03] MEDS: PRENATAL VITAMINS CHEWABLE TABLET PO SCH (09:25)
[2024-10-03] MEDS ORDERED: IBUP80TA PO (13:38)
[2024-10-04 00:55] LABS: HCV RNA QUANTITATION <15 NOT DETECTED IU/mL (NOT DETECTED); HCV RNA log10 <1.18 NOT DETECTED Log IU/mL (NOT DETECTED)
[2024-10-04] MEDS ORDERED: MEASLES,MUMPS,RUBELLA VACCINE INJ (MMR-II) SC.IMMUN ONE (09:00)
== END 2024-10-03 15:47 | disposition home or self-care (01) | DRG 560 ==
LOC: M LDI 17:35 → M OBS 10-02 12:30 → UNDODISIN 10-03 14:51
PROVIDERS: ADMIT Advanced Practice Midwife; ATTEND Specialist
PROC: 3E0P7GC Introduction of Other Therapeutic Substance into Female Reproductive, Via Natural or Artificial Opening (ICD-10-PCS; 2024-10-01)
PROC: 10E0XZZ Delivery of Products of Conception, External Approach (ICD-10-PCS; principal; 2024-10-02)
DX: O10.02 Pre-existing essential hypertension complicating childbirth (principal); Z37.0 Single live birth; Z3A.37 37 weeks gestation of pregnancy; Z79.82 Long term (current) use of aspirin; Z79.899 Other long term (current) drug therapy

== ENCOUNTER 2025-03-21 06:09 | Day surgery (SDC) | payer OTHER ==
[~2025-03-21] VITALS: Ht 175.3 cm; Wt 108.5 kg
[~2025-03-21 06:09] MED LIST changes: +ACET-683 PO; +ASPI81CH33 PO; +BIOT5TAB3 PO; +IBUP80TA PO; +LABE100T40 PO; -PROZ20CA11 PO; +PROZ20CA12 PO; +REGL10TA6 PO; +TUMS750C5 PO
[2025-03-21] MEDS ORDERED: dexAMETHasone 4 MG/ML 1 ML VIAL As Ordered ONE (06:49)
[2025-03-21] MEDS ORDERED: KETOROLAC 30 MG/ML 1 ML VIAL As Ordered ONE (06:49)
[2025-03-21] MEDS ORDERED: ONDANSETRON 4MG 2ML VIAL As Ordered ONE (06:49)
[2025-03-21] MEDS ORDERED: SUGAMMADEX SODIUM 500 MG/5 ML VIAL As Ordered ONE (06:49)
[2025-03-21] MEDS ORDERED: LIDOCAINE 2% 100 MG/5 ML SDV (FOR ANES.) As Ordered ONE (06:49)
[2025-03-21] MEDS ORDERED: ROCURONIUM BROMIDE 50MG/5ML VIAL As Ordered ONE (06:49)
[2025-03-21] MEDS ORDERED: dexmedeTOMIDine (4 MCG/ML) 200 MCG/50 ML BTL As Ordered ONE (06:49)
[2025-03-21 06:50] LABS: PLATELET COUNT, AUTOMATED 320 10^3/uL (150-450)
[2025-03-21] MEDS ORDERED: MIDAZOLAM INJ 2 MG/2 ML VIAL As Ordered ONE (06:56)
[2025-03-21 07:21] LABS: ALT/SGPT 22 U/L (7.0-40); AST/SGOT 19 U/L (<34); CALCIUM LEVEL 8.1 MG/DL (8.5-10.1); CARBON DIOXIDE LEVEL 24 MMOL/L (20-31); CHLORIDE LEVEL 107 MMOL/L (98-107); CREATININE FOR GFR 0.72 MG/DL (0.55-1.30); GLOMERULAR FILTRATION RATE > 90.0 (>60); POTASSIUM SERUM 4.2 MMOL/L (3.5-5.1); SODIUM LEVEL 139 MMOL/L (136-145)
[2025-03-21] MEDS ORDERED: LR 1,000 ML IV SCH ×2 (07:55→08:30)
[2025-03-21] MEDS ORDERED: OXYC1TAB23 PO (08:41)
[2025-03-21] MEDS ORDERED: IBUP600T42 PO (08:41)
[2025-03-21] MEDS: HYDROMORPHONE HCL 0.5 MG/0.5 ML SYRINGE IV PRN (09:08)
[2025-03-21] MEDS: ONDANSETRON 4MG 2ML VIAL IV PRN (09:08)
[2025-03-21 10:14] VITALS: BP 160/95; TEMP 98.2; O2SAT 97
== END 2025-03-21 10:24 | disposition home or self-care (01) ==
LOC: M SDC 06:09
PROVIDERS: ATTEND Specialist
DX: Z30.2 Encounter for sterilization (principal)
CPT/HCPCS: 36415; 58661; 80048; 80076; 81025; 85027; 88302; J0665; J1100; J1171; J1885; J2250; J2405; J3010